=== PATIENT | female | born 1965 | race Caucasian/White ===

== ENCOUNTER 2018-11-10 07:19 | Day surgery (SDC) | payer OTHER ==
[2018-11-10 08:47] LABS: ADD MAN DIFF? NO
[2018-11-10 08:54] LABS: WHITE BLOOD COUNT 7.7 10^3/ul (4.8-10.8)
[2018-11-10 08:54] LABS: BASOPHIL # 0.1 10^3/ul (0.0-0.1); BASOPHILS % 0.8 % (0.0-2.0); EOSINOPHILS # 0.4 10^3/ul (0.0-0.5); EOSINOPHILS % 5.1 % (0.0-7.0); HEMATOCRIT 39.2 % (37.0-47.0); HEMOGLOBIN 12.5 g/dl (12.0-16.0); LYMPHOCYTES # 2.4 10^3/ul (0.8-2.9); LYMPHOCYTES % 30.9 % (15.0-51.0); MEAN CORPUSCULAR HEMOGLOBIN 26.7 pg (29.0-33.0); MEAN CORPUSCULAR HGB CONC 31.9 g/dl (32.0-37.0); MEAN CORPUSCULAR VOLUME 83.8 fl (82.0-101.0); MEAN PLATELET VOLUME 9.3 fl (7.4-10.4); MONOCYTE # 0.5 10^3/ul (0.3-0.9); NEUTROPHIL # 4.3 10^3/ul (1.6-7.5); NEUTROPHILS % 55.8 % (39.0-77.0); PLATELET COUNT 255 10^3/UL (140-415); RED BLOOD COUNT 4.68 10^6/ul (4.20-5.40); RED CELL DISTRIBUTION WIDTH 14.1 % (11.5-14.5)
[2018-11-10] MEDS: SOD CHLORIDE 0.9% 1,000 ML IV (09:00)
[2018-11-10 09:13] LABS: INR 0.97
[2018-11-10 09:14] LABS: PARTIAL THROMBOPLASTIN TIME 27.5 Sec (23.0-35.0)
[2018-11-10 09:15] LABS: ALANINE AMINOTRANSFERASE 19 IU/L (13-69); ALBUMIN 4.5 g/dl (3.3-4.9); ALBUMIN/GLOBULIN RATIO 1.15; ALKALINE PHOSPHATASE 72 IU/L (42-121); ANION GAP 7 (5-13); ASPARTATE AMINO TRANSFERASE 26 IU/L (15-46); BILIRUBIN,INDIRECT 0.5 mg/dl (0-1.1); BILIRUBIN,TOTAL 0.5 mg/dl (0.2-1.3); BLOOD UREA NITROGEN 12 mg/dl (7-20); CALCIUM 10.1 mg/dl (8.4-10.2); CARBON DIOXIDE 29 mmol/L (21-31); CHLORIDE 106 mmol/L (97-110); CREATININE 0.55 mg/dl (0.44-1.00); Estimated GFR > 60 mL/min (>60); GLUCOSE 104 mg/dl (70-220); SODIUM 142 mmol/L (135-144); TOTAL PROTEIN 8.4 g/dl (6.1-8.1)
[2018-11-10] MEDS ORDERED: FENTAnyl 50 MCG/ML VIAL (10:15)
[2018-11-10] MEDS ORDERED: MIDAZOLAM 1 MG/ML 2 ML INJ (10:15)
[2018-11-10] MEDS ORDERED: PROPOFOL 20 ML (10:18)
[2018-11-10] MEDS ORDERED: LIDOCAINE 2% (SDV) 5 ML INJ (10:18)
[2018-11-10] MEDS ORDERED: CEFAZOLIN 1 GM INJ (10:18)
[2018-11-10] MEDS: BUPIVACAINE 0.25%/EPI (SDV) 30 ML INJ (10:58)
[2018-11-10] MEDS ORDERED: EPHEDrine 25 MG/5 ML SYG (11:09)
[2018-11-10] MEDS ORDERED: DEXAMETHASONE 4 MG/ML 5 ML INJ (11:10)
[2018-11-10] MEDS ORDERED: ONDANSETRON 4 MG INJ (11:10)
[2018-11-10] MEDS ORDERED: LACTATED RINGER'S 1,000 ML IV (11:51)
[2018-11-10] MEDS ORDERED: ONDANSETRON 4 MG INJ IV (12:00)
[2018-11-10] MEDS ORDERED: LABETALOL HCL 20MG INJ IV (12:00)
[2018-11-10] MEDS ORDERED: OXYCODONE/ACETAMINOPHEN (5/325) TAB PO ×2 (12:00)
[2018-11-10] MEDS ORDERED: FENTAnyl 50 MCG/ML VIAL IV (12:00)
[2018-11-10] MEDS ORDERED: HYDROCODONE/APAP (5/325) TAB PO (12:00)
[2018-11-10] MEDS ORDERED: MEPERIDINE 25 MG INJ IV (12:00)
[2018-11-10] MEDS: FENTAnyl 50 MCG/ML VIAL IV (12:08)
[2018-11-10] MEDS: ONDANSETRON 4 MG INJ IV (12:08)
== END 2018-11-10 14:19 | disposition home or self-care (01) ==
LOC: SDS 07:19
DX: D22.5 Melanocytic nevi of trunk (principal); L08.9 Local infection of the skin and subcutaneous tissue, unspecified
CPT/HCPCS: 11403; 80053; 84703; 85025; 85610; 85730; 88305; 88307